=== PATIENT | female | born 1945 | race Caucasian/White ===

== ENCOUNTER → 2016-12-14 | Outpatient (CLI) | payer OTHER ==
--- NOTE | ~2016-12-14 | CR63 ---
[facility] RADIOLOGY TEXT RESULTS PATIENT: MANJU NEVAREZ LOCATION: [facility] : 49 UNIT #: [id number] AGE: [address]: Good Álvarez MD SEX: F ORDER DR: [id number] [facility] [address] [place], [place] [address] [id number] MR#: [id number] Acc #: [id number] NAME: MANJU NEVAREZ : 1945 SEX: F STUDY DATE/TIME: 12/14/2016 15:30 UNIT: [facility] ROOM: STUDY DESCRIPTION: CR Chest 2 View Attending Physician: Good Álvarez M.D. Referring Physician: Good Álvarez M.D. Ordering Physician: Good Álvarez M.D. Primary Care Physician: Melinda Faith M.D. MEDICAL IMAGING REPORT This report is preliminary unless electronic signature is present EXAM PA and lateral chest DATE 12/14/2016 HISTORY Cough and chest tightness for 2 weeks. History of asthma. COMPARISON PA and lateral chest radiograph 01/24/2006. FINDINGS No acute airspace disease. Heart size is normal. Benign calcified granuloma in the right lower lobe. Calcific atherosclerotic changes within the aortic knob. No pleural effusion. No pneumothorax. No acute osseous abnormalities. IMPRESSION 1. No acute chest findings. No significant change compared to 01/24/2006. Dictated by... Pamela Jhaveri M.D. THIS IS AN ELECTRONICALLY VERIFIED REPORT Pamela Jhaveri M.D. at 12/15/2016 9:36 PM [facility] TD: 12/14/2016 23:15 JOB #: [id number] [facility] A Service [facility] RADIOLOGY TEXT RESULTS PATIENT: MANJU NEVAREZ LOCATION: [facility] : 49 UNIT #: [id number] AGE: [address]: Good Álvarez MD SEX: F ORDER DR: MEDICAL IMAGING REPORT Page 1 of 1 COPY
== END | disposition home or self-care (01) ==
LOC: CRAD 15:17
DX: R05 Cough (principal)
CPT/HCPCS: 71020